=== PATIENT | female | born 1965 | race Caucasian/White ===

== ENCOUNTER → 2017-04-29 | Outpatient (CLI) | payer BC ==
--- NOTE | 2017-04-29 15:33 | Diagnostic Imaging Report ---
EXAMINATION: Bilateral diagnostic mammogram with tomography evaluation. INDICATION: Lateral left breast lump. TECHNIQUE: Digital diagnostic mammography was performed bilaterally with a Computer Aided Detection (CAD) system. COMPARISON: 08/08/2015. FINDINGS: The palpable area is marked along the outer aspect of the left breast with asymmetry adjacent to the region seen in the outer aspect of the left breast. It is the oval in shape measuring 1.2 cm but is inseparable from the adjacent background dense parenchyma. In the right breast, there are multiple calcifications seen. These are magnified which demonstrates some layering on the true lateral view, in favor of milk of calcium benign calcifications. Scattered benign-appearing calcifications in the left breast are seen. IMPRESSION: 1. Calcifications in the right breast central aspect appear to layer on the true lateral magnification views, in favor of milk of calcium benign type calcifications. 2. Indeterminate asymmetry measuring 1.2 cm in the lateral aspect of the left CC projection inseparable from adjacent dense breast parenchyma seen near the marker for palpable lesion. Ultrasound evaluation is pending. ACR BI-RADS Category 0: Incomplete. (Needs additional imaging evaluation). Result letter will be mailed to the patient. Note: At least 10% of breast cancer is not imaged by mammography. Dictated by: Dictated on workstation # [id number]
--- NOTE | 2017-04-29 22:15 | Diagnostic Imaging Report ---
EXAM: Bilateral breast ultrasound. INDICATION: Left breast lump at 3:00 o'clock zone. Calcifications in the right breast. FINDINGS: The four-quadrants of the central retroareolar regions of each breast were scanned. In the left breast, the palpable lump at 3:00 o'clock zone corresponds to a mildly complicated cyst with septations seen measuring 1.4 x 1.4 x 1.4 cm. No internal vascularity or solid component is identified. Multiple other cysts are seen around this location at the 3:00 o'clock zone, about 6 cm from the nipple. No suspicious lesion in the left breast is noted. The right breast demonstrates no suspicious mass. At 7:30 o'clock position, there is a simple appearing cyst measuring 8 mm and at 10:00 o'clock zone 3 cm from the nipple, there is a cyst measuring 7 mm with suggestion of a focal calcification near its wall. No internal vascularity to suggest a solid component is seen. IMPRESSION: No suspicious lesion. Bilateral cystic structures with minimal complexity and no solid components identified. A six-month followup mammogram on the right side is recommended to ensure stability of the calcifications favored to be benign type relating to milk of calcium. BI-RADS 3. ACR BI-RADS Category 3: Probably benign findings. Result letter will be mailed to the patient. Note: At least 10% of breast cancer is not imaged by mammography. Dictated by: Dictated on workstation # [id number]
== END ==
LOC: RAD 13:56
PROVIDERS: ATTEND Nurse Practitioner
DX: N63 Unspecified lump in breast (principal)
CPT/HCPCS: 77066

== ENCOUNTER → 2018-01-29 | Outpatient (CLI) | payer BC ==
--- NOTE | 2018-01-29 14:29 | Diagnostic Imaging Report ---
INDICATION: Right breast calcifications. The patient presents for a six-month followup. COMPARISON: 04/29/2017. TECHNIQUE: 2D and 3D lateral right diagnostic mammography was performed including CC, MLO, and 90 degree lateral views. FINDINGS: The right breast is heterogeneously dense, limiting the sensitivity of mammography. Numerous calcifications of the right breast are again noted and appear similar to the prior exam. No definite soft tissue mass is seen. The right axilla is unremarkable. IMPRESSION: Stable right breast calcifications. The patient should return in 6 months for additional followup. ACR BI-RADS Category 3: Probably benign findings. Result letter will be mailed to the patient. Note: At least 10% of breast cancer is not imaged by mammography. Dictated by: Dictated on workstation # [id number]
== END ==
LOC: RAD 13:29
PROVIDERS: ATTEND Nurse Practitioner
DX: R92.1 Mammographic calcification found on diagnostic imaging of breast (principal)

== ENCOUNTER → 2018-06-09 | Outpatient (CLI) | payer BC ==
[~2018-06-09] MED LIST: IOHEXOL 350 MG/ML 100 ML (OMNIPAQUE 350) VIAL IV ONE; NS 250 ML (IVPB) BAG IV ONE
[2018-06-09 16:15] LABS: BUN/CREATININE RATIO 18; CREATININE SERUM 0.72 MG/DL (0.60-1.30); GFR ESTIMATED > 60
--- NOTE | 2018-06-09 17:34 | Diagnostic Imaging Report ---
PROCEDURE: CT abdomen and pelvis with and without contrast. TECHNIQUE: Precontrast acquisitions were acquired through the abdomen and pelvis. Multiple contiguous axial images were obtained through the abdomen and pelvis after the administration of intravenous contrast. INDICATION: Recurrent urinary tract infections. COMPARISON: None. FINDINGS: Lung bases are clear. There are couple nonenhancing lesions in the liver, most likely representing benign cysts. The gallbladder, pancreas, spleen, adrenals, kidneys, and collecting systems are negative. Diffusely prominent uterus with no focal mass identified. There is a well-circumscribed fluid collection in the left pelvis measuring up to 5.4 cm which appears to be contiguous with the distended urinary bladder. Small cyst in the right ovary measuring up to 2.3 cm. Normal appendix. No free intraperitoneal air or fluid. No evidence of bowel obstruction or inflammation. There is a large amount of stool throughout the colon. No acute osseous findings. IMPRESSION: 1. Small thin-walled fluid collection in the left pelvis appears to be continuous with the dome of the bladder and likely represents a bladder diverticulum. There is not adequate contrast within the bladder to confirm that this is continuous with the bladder. 2. The uterus is prominent in size with no focal mass identified by CT. There is also a small right ovary measuring up to 2.3 cm. Both of these findings could be further investigated with pelvic ultrasound. 3. Large amount of stool throughout the colon, consistent with constipation. Dictated by: Dictated on workstation # [id number]
== END ==
LOC: RAD 15:45
PROVIDERS: ATTEND Urology
DX: N39.0 Urinary tract infection, site not specified (principal)
CPT/HCPCS: 36415; 74178; 82565; 84520

== ENCOUNTER 2018-07-15 15:40 | Outpatient (CLI) | payer BC ==
[~2018-07-15] VITALS: Ht 167.6 cm; Wt 79.4 kg
== END 2018-07-15 15:47 | disposition home or self-care (01) ==
LOC: PREOP 15:40
PROVIDERS: ATTEND Surgery
DX: Z01.818 Encounter for other preprocedural examination (principal)

== ENCOUNTER 2018-07-21 07:21 | Day surgery (SDC) | payer BC ==
[~2018-07-21] VITALS: Ht 167.6 cm; Wt 79.4 kg
[2018-07-21] MEDS ORDERED: NS IV 500 ML 500 ML IV PRN (07:29)
[2018-07-21] MEDS ORDERED: fentaNYL INJECTION 100 MCG/2 ML AMP IVP ONE (07:30)
[2018-07-21] MEDS ORDERED: MIDAZOLAM 2 MG/2 ML (VERSED) VIAL IVP ONE (07:30)
[2018-07-21] MEDS ORDERED: NS IV 500 ML 500 ML ONE (07:34)
[2018-07-21 07:42] VITALS: BP 132/75
[2018-07-21] MEDS ORDERED: MIDAZOLAM 2 MG/2 ML (VERSED) VIAL ONE ×6 (08:22→08:44)
[2018-07-21] MEDS ORDERED: fentaNYL INJECTION 100 MCG/2 ML AMP ONE (08:22)
--- NOTE | 2018-07-21 08:32 | History & Physicial ---
History of Present Illness History of Present Illness Reason for visit/HPI to undergo screening colonoscopy. Reports a family history of colon cancer ( Uncle) and polyps ( Parent) Date of Admission 07/21/18 Date Seen by a Provider: Jul 21, 2018 Time Seen by a Provider: 08:30 I consulted on this patient on 07/21/18 08:29 Attending Physician Dione Gonzáles MD Admitting Physician No,Local Physician Consult Allergies and Home Medications Allergies Coded Allergies: No Known Drug Allergies (Unverified , 07/15/18) Home Medications No Active Prescriptions or Reported Meds Patient Home Medication List Home Medication List Reviewed: Yes Past [place]-Mknqtl-Skjhec Hx Patient Social History Marrital Status: Employed/Student: employed Alcohol Use: Rarely Uses Recreational Drug Use: No Smoking Status: Never a Smoker Recent Foreign Travel: No Contact w/other who traveled: No Recent Hopitalizations: No Recent Infectious Disease Expo: No Immunizations Up To Date Date of Influenza Vaccine: May 26, 2018 Seasonal Allergies Seasonal Allergies: No Surgeries Yes Tonsillectomy Respiratory No Currently Using CPAP: No Currently Using BIPAP: No Cardiovascular No Reproductive System Hx Reproductive Disorders: No Sexually Transmitted Disease: Yes HIV/AIDS: No Female Reproductive Disorders: Denies Genitourinary No UTI-Chronic Gastrointestinal No Musculoskeletal No Endocrine History of Endocrine Disorders: No HEENT History of HEENT Disorders: No Loss of Vision: Bilateral Hearing Impairment: Denies Blood Transfusions Adverse Reaction to a Blood Tr: No (N/A) Review of Systems Constitutional: no symptoms reported EENTM: no symptoms reported Respiratory: no symptoms reported Cardiovascular: no symptoms reported Gastrointestinal: no symptoms reported Genitourinary: no symptoms reported Musculoskeletal: no symptoms reported Skin: no symptoms reported Psychiatric/Neurological: No Symptoms Reported Physical Exam Vital Signs Vital Signs - First Documented 07/21/18 07:42 Temp 98.9 Pulse 91 Resp 18 B/P (MAP) 132/75 (94) Pulse Ox 99 O2 Delivery Room Air Capillary Refill : Height, Weight, BMI Height: 5'6.00" Weight: 175lbs. 0.0oz. 79.736531gv; 28.3 BMI Method: General Appearance: No Apparent Distress Neck: Normal Inspection Respiratory: Lungs Clear Cardiovascular: Regular Rate, Rhythm Gastrointestinal: Non Tender, Soft Rectal: Deferred Extremity: Normal Inspection Neurologic/Psychiatric: Alert, Oriented x3 Skin: Warm/Dry Assessment/Plan Assessment and Plan lady with a family history of colon cancer and polyps. For screening colonoscopy. Details of the procedure, post-polypectomy bleeding, iatrogenic perforation, recommendation for further screening etc. reviewed thoroughly. Seems to be in agreement proceed. Admission Diagnosis Admission Status: Other (Outpt Proc) DIONE GONZÁLES MD Jul 21, 2018 08:31
--- NOTE | 2018-07-21 08:32 | Conscious Sedation/ASA ---
Conscious Sedation Pre-Proced Time 07:55 ASA Score 1 For ASA 3 and 4: Consider anesthesia and medical clearance. Also, for patients with a history of failed moderate sedation consider anesthesia. Airway Lungs Heart ASA score ASA 1: a normal healthy patient ASA 2: a patient with a mild systemic disease (mid diabetes, controlled hypertension, obesity ASA 3: a patient with a severe systemic disease that limits activity (angina , COPD, prior Myocardial infarction) ASA 4: a patient with an incapacitating disease that is a constant threat to life (CHF, renal failure) ASA 5: a moribund patient not expected to survive 24 hrs. (ruptured aneurysm) ASA 6: a declared brain patient whose organs are being harvested. For emergent operations, add the letter E after the classification Mallampati Classification Grade 1 Sedation Plan Discussed options with patient/fam The patient is an appropriate candidate to undergo the planned procedure, sedation, and anesthesia. The patient immediately re-assessed prior to indication. DIONE GONZÁLES MD Jul 21, 2018 08:32
--- OUTSIDE RECORDS SUMMARY | 2018-07-21 08:48 | XMS REPORT ---
Author Author ABBIE FLOREZ Organization [facility] Address [address] [place] [address] Care Team Providers Care Automatic Lathe Operator Name Role Phone ABBIE FLOREZ Unavailable PROBLEMS Unknown Problems ALLERGIES No Information ENCOUNTERS Encounter Location Date Diagnosis [facility] [id number] [phone] Jul, Acute non-recurrent frontal sinusitis J01.10 [facility] [address] [address] Jul, [facility] [id number] [place] [phone] May, Encounter for immunization Z23 [facility] [address] [facility] [id number] [place] [phone] Mar, Dental examination Z01.20 IMMUNIZATIONS No Known Immunizations SOCIAL HISTORY Never Assessed REASON FOR VISIT itchy rash PLAN OF CARE VITAL SIGNS MEDICATIONS Medication Instructions Dosage Frequency Start Date End Date Duration Status Elimite 5 % Externally Once a day 1 application to affected area 24h JulJul, 7 day(s) Active RESULTS No Results PROCEDURES No Known procedures INSTRUCTIONS MEDICATIONS ADMINISTERED No Known Medications MEDICAL (GENERAL) HISTORY Type Description Date Surgical History Tonsils removed 1987
--- OUTSIDE RECORDS SUMMARY | 2018-07-21 08:48 | XMS REPORT ---
Author Author ABBIE FLOREZ Organization [facility] Address [address] [place] [address] Care Team Providers Care Veneer Lathe Operator Name Role Phone CHRISTINECUCOABBIE Unavailable PROBLEMS Unknown Problems ALLERGIES No Information ENCOUNTERS Encounter Location Date Diagnosis [facility] [id number] [phone] Jul, Acute non-recurrent frontal sinusitis J01.10 [facility] [id number], [place] [address] Jul, [facility] [id number] [place] [phone] May, Encounter for immunization Z23 [facility] [address] [facility] [id number] [phone] Mar, Dental examination Z01.20 IMMUNIZATIONS Vaccine Route Administration Date Status FLUARIX QUAD (3 AND UP) 2016 IM Intramuscular Jun 18, 2017 Administered SOCIAL HISTORY Never Assessed REASON FOR VISIT Flu shot Rose HILLIARD PLAN OF CARE VITAL SIGNS MEDICATIONS No Known Medications RESULTS No Results PROCEDURES Procedure Date Ordered Result Body Site FLUARIX QUAD (3 AND UP) 2017 Jun 18, 2017 SINGLE IMMUNIZATION ADMIN Jun 18, 2017 INSTRUCTIONS MEDICATIONS ADMINISTERED No Known Medications MEDICAL (GENERAL) HISTORY Type Description Date Surgical History Tonsils removed 1987
--- OUTSIDE RECORDS SUMMARY | 2018-07-21 08:48 | XMS REPORT ---
Author Author ABBIE FLOREZ Organization [facility] Address [address] [place] [address] Care Team Providers Care Lock Master Name Role Phone CHRISTINECUCOABBIE Unavailable PROBLEMS Unknown Problems ALLERGIES No Known Allergies ENCOUNTERS Encounter Location Date Diagnosis [facility] [id number] [phone] Jul, Acute non-recurrent frontal sinusitis J01.10 [facility] [address], [place] [address] Jul, [facility] [address] [place] [phone] May, Encounter for immunization Z23 [facility] [address] [id number] [id number] Mar, Dental examination Z01.20 IMMUNIZATIONS Vaccine Route Administration Date Status DEPO MEDROL 80 MG/ML IM Intramuscular Jul 30, 2017 Administered SOCIAL HISTORY Never Assessed REASON FOR VISIT sinus issues-Rose HILLIARD PLAN OF CARE Activity Details Follow Up prn Reason: VITAL SIGNS Height 65 in 2017-07-30 Weight 170 lbs 2017-07-30 Temperature 98.6 degrees Fahrenheit 2017-07-30 Heart Rate 86 bpm 2017-07-30 Respiratory Rate 18 2017-07-30 BMI 28.29 kg/m2 2017-07-30 Blood pressure systolic 118 mmHg 2017-07-30 Blood pressure diastolic 68 mmHg 2017-07-30 MEDICATIONS No Known Medications RESULTS No Results PROCEDURES Procedure Date Ordered Result Body Site DEPO MEDROL 80 MG/ML Jul 30, 2017 THER/PROPH/DIAG INJ, SC/IM Jul 30, 2017 INSTRUCTIONS MEDICATIONS ADMINISTERED No Known Medications MEDICAL (GENERAL) HISTORY Type Description Date Surgical History Tonsils removed 1987
--- OUTSIDE RECORDS SUMMARY | 2018-07-21 08:48 | XMS REPORT ---
Author Author AMRISSA MCGEE Organization [facility] Address [address] [place] [address] Care Team Providers Care Financial Institution Treasurer Name Role Phone MARISSA MCGEE Unavailable PROBLEMS Unknown Problems ALLERGIES No Information ENCOUNTERS Encounter Location Date Diagnosis [facility] [id number] [place] [phone] May, Encounter for immunization Z23 [facility] [id number] [place] [id number] Jul, Acute non-recurrent frontal sinusitis J01.10 [facility] [id number] [place] [phone] Jul, [facility] [place] [id number] [place] [phone] May, Encounter for immunization Z23 [facility] [id number] [place] [phone] Mar, Dental examination Z01.20 IMMUNIZATIONS Vaccine Route Administration Date Status FLULAVAL QUAD 0.5ML (6 MO & UP) 2018 IM Intramuscular Jun 10, 2018 Administered SOCIAL HISTORY Never Assessed REASON FOR VISIT Flu shot PLAN OF CARE VITAL SIGNS MEDICATIONS Unknown Medications RESULTS No Results PROCEDURES Procedure Date Ordered Result Body Site FLULAVAL QUAD 0.5ML (6 MO AND UP) 2018 Jun 10, 2018 SINGLE IMMUNIZATION ADMIN Jun 10, 2018 INSTRUCTIONS MEDICATIONS ADMINISTERED No Known Medications MEDICAL (GENERAL) HISTORY Type Description Date Surgical History Tonsils removed 1987
--- NOTE | 2018-07-21 08:58 | Endo Procedure Record ---
Endo Procedure Report Date of Procedure Last Colonoscopy: No Jul 21, 2018 Surgeon (s) DIONE GONZÁLES MD Post Procedure/Op Diagnosis 2 mm distal rectal polyp Sigmoid diverticulosis Procedure Performed colonoscopy to cecum Hot biopsy polypectomy Description of Procedure Anesthesia Type: Conscious Sedation Specimen(s) collected/removed distal rectal polyp Description of the Procedure Indication for the procedure: This lady, with a family history of colon cancer and polyps, came in for screening colonoscopy. Informed consent was obtained after reviewing the procedure in detail. Description of the procedure: She was placed in left lateral decubitus position and her vital signs were monitored. Conscious sedation was achieved using Versed and fentanyl. Digital rectal examination was unremarkable the colonoscope was then introduced into the rectum and advanced to the cecum. The quality of bowel preparation was rather suboptimal. I was however able to irrigate the mucosa and complete the examination. The scope was then withdrawn slowly and the mucosa examined in a systematic fashion. Findings: 1. 2 mm polyp at the distal rectum, there was excised with hot biopsy forceps 2. Sigmoid diverticulosis. She tolerated the procedure well and was taken back to the nursing area in a stable condition. Impression: Screening colonoscopy. Positive family history. 2 mm rectal polyp excised. Recommend repeating in 5 years. Copy Copies To 1: MAMIE HO XAVIER M MD Jul 21, 2018 08:58
--- NOTE | 2018-07-21 08:59 | Discharge Inst-Simple/Standard ---
Discharge Inst-Standard Discharge Medications New, Converted or Re-Newed RX: Other Patient Instructions/Follow Up Plan of Care/Instructions/FU: repeat colonoscopy in 5 years Activity as Tolerated: Yes Discharge Diet: No Restrictions DIONE GONZÁLES MD Jul 21, 2018 08:58
[2018-07-21 09:20] VITALS: BP 110/63
[2018-07-21 09:50] VITALS: BP 118/60
== END 2018-07-21 09:55 | disposition home or self-care (01) ==
LOC: ENDO 07:21
PROVIDERS: ATTEND Surgery
DX: Z12.11 Encounter for screening for malignant neoplasm of colon (principal); K62.1 Rectal polyp; K57.30 Diverticulosis of large intestine without perforation or abscess without bleeding; Z80.0 Family history of malignant neoplasm of digestive organs; Z83.71 Family history of colonic polyps
CPT/HCPCS: 84703

== ENCOUNTER → 2018-08-08 | Outpatient (CLI) | payer BC ==
--- NOTE | 2018-08-08 17:54 | Diagnostic Imaging Report ---
INDICATION: Enlarging left breast mass. Study was performed for further evaluation. COMPARISON: Correlation is made with diagnostic mammogram from 08/08/2018 and prior left breast ultrasound from 04/29/2017. EXAMINATION: Sonographic interrogation of the outer left breast at 3 o'clock location was obtained. FINDINGS: There are multiple cysts. At 3 o'clock there is a cyst likely accounting for the enlarging density noted mammographically, measuring approximately 1.3 cm cephalocaudal x 1.6 cm transverse x 0.8 cm AP. This is not significantly changed from prior exam. The degree of wall thickening and irregularity is much less prominent on today's study. No significant internal septations or complexity is seen on today's study. There are several adjacent smaller cysts measuring less than 1 cm in size. IMPRESSION: Stable left breast cysts when compared with examination dating back to April 2017. Followup left mammogram and left breast ultrasound is recommended to show continued stability. ACR BI-RADS Category 3: Probably benign findings. Result letter will be mailed to the patient. Note: At least 10% of breast cancer is not imaged by mammography. Dictated on workstation # [id number]
--- NOTE | 2018-08-08 18:03 | Diagnostic Imaging Report ---
INDICATION: Six-month follow-up right breast calcification. Correlation is made with prior right mammogram from 01/29/2018 and bilateral mammograms from 04/29/2017 and 08/08/2015. 2-D and 3-D bilateral diagnostic mammography was performed with computer-aided detection (CAD) system. FINDINGS: Both breasts are heterogeneously dense, limiting the sensitivity of mammography. Bilateral breast calcifications are again noted. The calcifications appear to be fairly stable. There is a circumscribed density in the 3 o'clock location in left breast mid depth. It appears to be slightly larger when compared with prior studies, likely an enlarging cyst. No new mass is seen. The axillae are unremarkable. IMPRESSION: 1. Stable bilateral breast calcifications. 2. Enlarging circumscribed density outer left breast at mid-to posterior depth, likely an enlarging cyst. Further evaluation of this area with ultrasound is recommended and will be performed today. ACR BI-RADS Category 0: Incomplete. (Needs additional imaging evaluation). Result letter will be mailed to the patient. Note: At least 10% of breast cancer is not imaged by mammography. Dictated on workstation # [id number]
== END ==
LOC: RAD 12:36
PROVIDERS: ATTEND Nurse Practitioner
DX: N63.20 Unspecified lump in the left breast, unspecified quadrant (principal); N60.02 Solitary cyst of left breast
CPT/HCPCS: 76642; 77066

== ENCOUNTER → 2019-06-08 | Outpatient (CLI) | payer BC ==
--- NOTE | 2019-06-08 16:35 | Diagnostic Imaging Report ---
PATIENT HISTORY: RIGHT ARM/SHOULDER PAIN. TECHNIQUE: Three views of the right shoulder. COMPARISON: None. FINDINGS: No acute fracture or dislocation is seen in the right shoulder. Alignment appears normal. Joint spaces are preserved. IMPRESSION: No acute osseous abnormality is seen in the right shoulder. Dictated by: Dictated on workstation # [id number]
--- NOTE | 2019-06-08 16:36 | Diagnostic Imaging Report ---
PATIENT HISTORY: RIGHT ARM/SHOULDER PAIN. TECHNIQUE: Two views of the right humerus. COMPARISON: None. FINDINGS: No acute fracture or dislocation is seen in the right humerus. Alignment appears normal. Joint spaces are preserved. IMPRESSION: No acute osseous abnormality is seen in the right humerus. Dictated by: Dictated on workstation # [id number]
== END ==
LOC: RAD 15:52
PROVIDERS: ATTEND Nurse Practitioner Family
DX: M25.511 Pain in right shoulder (principal); M79.621 Pain in right upper arm
CPT/HCPCS: 73030; 73060

== ENCOUNTER → 2019-06-26 | Outpatient (CLI) | payer BC ==
--- NOTE | 2019-06-26 16:15 | Diagnostic Imaging Report ---
EXAMINATION: Magnetic resonance imaging of the right shoulder without contrast. DATE: June 26, 2019. COMPARISON: Right shoulder radiographs June 08, 2019. HISTORY: 54-year-old female, right shoulder pain. History of fall in March 2019. TECHNIQUE: Magnetic Resonance Imaging sequences were performed of the shoulder without contrast. FINDINGS: ROTATOR CUFF, LIGAMENTS, TENDONS, AND MUSCLES: The supraspinatus, infraspinatus, teres minor, and subscapularis tendons and muscles are intact. There is normal rotator cuff muscle bulk and signal. LONG HEAD OF BICEPS: The biceps labral attachment and long head of the biceps tendon is intact. The long head of the biceps tendon is normally positioned within the bicipital groove. GLENOHUMERAL JOINT: The humeral head is well positioned relative to the glenoid. The labrum is grossly intact. There is no identified paralabral cyst. The articular cartilage is grossly intact. There is no joint effusion. ACROMIOCLAVICULAR JOINT: The acromioclavicular joint is normally aligned. The coracoclavicular and coracoacromial ligaments are intact. There are no degenerative changes of the acromioclavicular joint. BONE: The bones all have normal configuration. The bone marrow signal is within normal limits. Specifically, negative for fracture, osteomyelitis, osteonecrosis, or marrow replacing process. BURSAE AND SOFT TISSUES: The bursae and soft tissue surrounding the shoulder are unremarkable. IMPRESSION: 1. Unremarkable MRI of the right shoulder. Dictated by: Dictated on workstation # [id number]
== END ==
LOC: RAD 15:01
PROVIDERS: ATTEND Nurse Practitioner
DX: S46.011A Strain of muscle(s) and tendon(s) of the rotator cuff of right shoulder, initial encounter (principal); M24.511 Contracture, right shoulder; Z91.81 History of falling
CPT/HCPCS: 73221

== ENCOUNTER → 2019-08-13 | Outpatient (CLI) | payer BC ==
--- NOTE | 2019-08-13 18:50 | Diagnostic Imaging Report ---
INDICATION: Routine screening. Comparison is made with prior mammograms from 08/08/2018 and 04/29/2017. 2-D and 3-D bilateral screening mammography was performed. The current study was also evaluated with a Computer Aided Detection (CAD) system. 3-D tomosynthesis was also performed and reviewed. FINDINGS: Both breasts are heterogeneously dense, limiting the sensitivity of mammography. Bilateral breast calcifications appear to be fairly stable. The rounded density in the lateral left breast shown to represent cyst appears stable. No new mass or malignant-appearing microcalcifications are seen. Axillae are unremarkable. IMPRESSION: No mammographic features suspicious for malignancy are identified. ACR BI-RADS Category 2: Benign findings. Result letter will be mailed to the patient. Note: At least 10% of breast cancer is not imaged by mammography. Dictated by: Dictated on workstation # [id number]
== END ==
LOC: RAD 10:06
PROVIDERS: ATTEND Obstetrics & Gynecology
DX: Z12.31 Encounter for screening mammogram for malignant neoplasm of breast (principal)
CPT/HCPCS: 77067